=== PATIENT | male | born 1975 | race Caucasian/White ===

== ENCOUNTER 2016-03-16 12:08 | Emergency (ER) | payer OTHER ==
[~2016-03-16] VITALS: Ht 165.1 cm; Wt 46.7 kg
[~2016-03-16 12:08] MED LIST: LISINOPRIL5 MG PO; NICOTINE TRANSD21 M1 TRANSDERM; NOHOMEMEDICATIONS; NOVOLIN R100 UNIT/3 SUBQ
[2016-03-16 12:22] LABS: ABG SAMPLE TYPE ARTERIAL; BE(vivo) -1.6 mmol/L (-2 to +3); HCO3 22.7 mmol/L (22.0-26.0); LACTATE 0.92 mmol/L (0.5-2.0); O2(CT) 19.5 mL/dL (15.0-23.0); O2Hb 89.8 % (92.0-98.0); PCO2 37.4 mmHg (35.0-45.0); PO2 89.2 mmHg (80.0-100.0); STICK SITE R.BRACHIAL; pH 7.401 (7.360-7.450); sO2 96.9 % (92.0-98.0); tCO2 23.8 mmol/L (24.0-30.0)
[2016-03-16] MEDS ORDERED: NOVOLOG100 UNIT/1 SUBQ (12:35)
[2016-03-16 12:49] LABS: HEMOGLOBIN 14.7 gm/dL (14.0-18.0); MCH 29.4 pg (26.0-34.0); MCHC 34.1 % (28.0-37.0); RDW 13.3 % (10.5-14.5); WBC 6.4 thou/uL (4.0-11.0)
[2016-03-16 12:57] LABS: CALCIUM 9.2 mg/dL (8.5-10.1); CREATININE 0.8 mg/dL (0.6-1.3); POTASSIUM 4.1 mmol/L (3.5-5.1)
[2016-03-16 13:03] LABS: ALBUMIN 4.2 g/dL (3.4-5.0); TOTAL BILIRUBIN 0.4 mg/dL (<0.1-1.0); TOTAL PROTEIN 7.3 g/dL (6.4-8.2)
== END 2016-03-16 15:08 | disposition home or self-care (01) ==
LOC: ER 12:08 → EDBD 12:08 → ER 15:08
PROVIDERS: Emergency Medicine; Physician Assistant
DX: R51 Headache (principal); R10.9 Unspecified abdominal pain; R63.4 Abnormal weight loss; E11.9 Type 2 diabetes mellitus without complications; F17.210 Nicotine dependence, cigarettes, uncomplicated; F10.99 Alcohol use, unspecified with unspecified alcohol-induced disorder

== ENCOUNTER 2017-10-14 12:34 | Emergency (ER) | payer OTHER ==
[~2017-10-14] VITALS: Ht 165.1 cm; Wt 52.2 kg
[~2017-10-14 12:34] MED LIST changes: +NOVOLOG100 UNIT/1 SUBQ
[2017-10-14 13:11] LABS: BASOPHILS 1.3 % (0.0-2.0); EOSINOPHILS 1.1 % (0.0-3.0); HEMATOCRIT 46.3 % (42.0-52.0); HEMOGLOBIN 15.6 gm/dL (14.0-18.0); LYMPHOCYTES 44.7 % (24.0-44.0); MCHC 33.7 g/dL (28.0-37.0); MCV 86.2 fL (80.0-100.0); MONOCYTES 7.3 % (1.0-8.0); PLATELET COUNT 279 thou/uL (150-400); POLYS 45.6 % (36.0-66.0); RBC 5.37 mil/uL (4.50-6.00); RDW 13.8 % (10.5-14.5); WBC 6.6 thou/uL (4.0-11.0)
[2017-10-14 13:26] LABS: CALCIUM 9.7 mg/dL (8.5-10.1); CREATININE 0.8 mg/dL (0.7-1.3); POTASSIUM 3.9 mmol/L (3.5-5.1)
[2017-10-14] MEDS ORDERED: REGLAN 10 MG TA10 MG PO (14:19)
== END 2017-10-14 14:40 | disposition home or self-care (01) ==
LOC: ER 12:34
PROVIDERS: Physician Assistant
DX: R51 Headache (principal); E11.9 Type 2 diabetes mellitus without complications